=== PATIENT | male | born 1945 | race Two or more races ===

== ENCOUNTER 2019-06-26 09:25 | Inpatient (IN) | payer MEDICARE ==
[~2019-06-26] VITALS: Ht 162.6 cm; Wt 60.5 kg
[~2019-06-26 09:25] MED LIST: CEFT2FRO2 IVPB; FINA5TAB4 PO; TAMS-11 PO
[2019-06-26] MEDS ORDERED: SODIUM CHLORIDE 0.9% 1,000 ML IV ONE ×2 (09:54→14:41)
[2019-06-26] MEDS ORDERED: IBUPROFEN 600 MG TABLET PO ONE (10:00)
[2019-06-26] MEDS ORDERED: SODIUM CHLORIDE 0.9% 1,000ML IVBOLUS ONE ×2 (10:00→14:30)
[2019-06-26] MEDS ORDERED: ONDANSETRON 2MG/ML, 2ML IVPush ONE (10:00)
[2019-06-26] MEDS ORDERED: ACETAMINOPHEN 500 MG TABLET PO ONE (10:00)
--- NOTE | 2019-06-26 10:00 | NUR ---
LATE ENTRY D/T PATIENT CARE: PT PRESENTS TO ED WITH FAMILY, PT IS SLOV[place] SPEAKING BUT REQUESTS SON ([place]) TO TRANSLATE, REFUSES [employer]IST. PT REPORTS CHILLS STARTING YESTERDAY, SOB STARTING THIS AM. PT DENIES PAIN. RECTAL TEMP OBTAINED, 104.6, EDMD SAHM NOTIFIED. COOLING MEASURES IN PLACE, PT PLACED IN GOWN, ALL MONITORS IN PLACE. EKG TAKEN IN TRIAGE. PIV ESTABLISHED, LABS DRAWN, IVF INFUSING RAPIDLY. PT A&OX4, RESPS EVEN AND UNLABORED, SINUS TACH ON DEVELOPMENT LEAD.
[2019-06-26] MEDS ORDERED: IBUPROFEN 600 MG TABLET ONE (10:06)
[2019-06-26] MEDS ORDERED: ACETAMINOPHEN 500 MG TABLET ONE (10:06)
[2019-06-26] MEDS ORDERED: ONDANSETRON 2MG/ML, 2ML ONE (10:06)
[2019-06-26 10:27] LABS: BASOPHILS # (AUTO) 0.01 x10^3/uL (0-0.1); BASOPHILS % (AUTO) 0 % (0-1); EOSINOPHILS # (AUTO) 0.01 x10^3/uL (0-0.4); EOSINOPHILS % (AUTO) 0 % (1-7); LYMPHOCYTES # (AUTO) 0.91 x10^3/uL (1-3.4); LYMPHOCYTES % (AUTO) 8 % (22-44); MD NO; MEAN CORPUSCULAR HEMOGLOBIN 28.7 pg (27.5-34.5); MEAN CORPUSCULAR HGB CONC 33.1 g/dL (33.2-36.2); MEAN CORPUSCULAR VOLUME 86.7 fL (81-97); MEAN PLATELET VOLUME 8.1 fL (7.4-10.4); MONOCYTES # (AUTO) 0.18 x10^3/uL (0.2-0.8); MONOCYTES % (AUTO) 2 % (2-9); NEUTROPHILS # (AUTO) 10.75 x10^3/uL (1.8-6.8); NEUTROPHILS % (AUTO) 91 % (42-75); PLATELET COUNT 219 x10^3/uL (130-400); RED BLOOD COUNT 5.55 x10^6/uL (4.38-5.82); RED CELL DISTRIBUTION WIDTH 14.2 % (9.4-14.8)
[2019-06-26 10:40] LABS: ALANINE AMINOTRANSFERASE 123 U/L (12-78); ALBUMIN 3.3 g/dL (3.4-5.0); ANION GAP 10 mmol/L (5-15); CALCIUM 8.6 mg/dL (8.5-10.1); CHLORIDE 109 mmol/L (98-107); CREATININE 1.35 mg/dL (0.7-1.3)
[2019-06-26 10:42] LABS: ALKALINE PHOSPHATASE 81 U/L (45-117); BILIRUBIN,TOTAL 3.2 mg/dL (0.2-1.0); TOTAL PROTEIN 7.5 g/dL (6.4-8.2)
--- NOTE | 2019-06-26 11:05 | NUR ---
PT MEDICATED PER EMAR, TOLERATED WELL. HR IMPROVING, TEMP RECHECK ORAL IS 99.3. PT ABLE TO CLOSE MOUTH COMPLETELY AROUND TEMP PROBE, TEMP APPEARS ACCURATE. PT IS SINUS TACH RATE 110'S ON CARIAC MONITOR WITH NO ECTOPY NOTED. PT A&O, RESPS EVEN AND UNLABORED. FAMILY AT BEDSIDE. PER MD GARNICA, PT DOES NOT HAVE A UTI. AWAITING US AND RESULTS FOR SOURCE OF INFECTION TO BE DETERMINED.
[2019-06-26] MEDS ORDERED: TAMS-11 PO (11:07)
[2019-06-26] MEDS ORDERED: SPIRIVA RESPIMAT INH (11:07)
[2019-06-26] MEDS ORDERED: ATOR20TA37 PO (11:07)
[2019-06-26] MEDS ORDERED: PROAIR HFA INH (11:07)
[2019-06-26 11:15] LABS: MICROSCOPIC INDICATED
[2019-06-26 11:16] LABS: CULTURE INDICATED? YES
[2019-06-26 11:36] LABS: ACETONE, SERUM Negative (Negative)
--- NOTE | 2019-06-26 12:00 | NUR ---
US IN PROGRESS AT BEDSIDE.
[2019-06-26] MEDS ORDERED: PIPERACILLIN/TAZO/PMX 4.5GM 100 ML IVPB ONE (12:30)
[2019-06-26] MEDS ORDERED: OMNIPAQUE 350 MG/ML, 100ML BOTTLE ONE (12:45)
--- NOTE | 2019-06-26 12:45 | NUR ---
LATE ENTRY D/T PATIENT CARE: REPORT GIVEN TO LESLIE KEY. ZOSYN INFUSING VIA IV PUMP. VSS. FAMILY AT BEDSIDE.
--- NOTE | 2019-06-26 13:19 | NUR ---
TASK RN: PT TO CT
--- NOTE | 2019-06-26 13:20 | NUR ---
THIS RN RETURNED FROM BREAK, PT IN CT.
--- NOTE | 2019-06-26 13:43 | NUR ---
pt back from CT. pt a&o, resps even and unlabored. pt denies pain. sinus tach rate 90s on head of loss prevention with no ectopy noted. awaiting CT results and dispo.
--- NOTE | 2019-06-26 14:17 | NUR ---
MD Torres notified pt's bp 89/56 despite fluid admin as ordered. RN awaiting additional NS orders to meet weight based fluid bolus criteria.
--- NOTE | 2019-06-26 14:24 | NUR ---
rn received order from MD Torres to bolus 500mL NS.
[2019-06-26] MEDS ORDERED: SODIUM CHLORIDE 0.9%, 500ML IVBOLUS ONE (14:30)
[2019-06-26] MEDS ORDERED: SODIUM CHLORIDE FLUSH 10ML SYR IVF PRN (15:00)
--- NOTE | 2019-06-26 15:00 | NUR ---
500ML NS BOLUS INFUSING RAPIDLY. PT A&OX4, RESPS EVEN AND UNLABORED, DENIES PAIN. FAMILY AT BEDSIDE. PT AWAITING ERCP AND ADMIT BED ASSIGNMENT AND TRANSPORT. REPORT GIVEN TO LESLIE KEY WHO IS TO ASSUME CARE.
--- NOTE | 2019-06-26 15:49 | NUR ---
Pt resting in room,
[2019-06-26] MEDS ORDERED: MORPHINE SULFATE 4 MG/ML, 1ML IVPush PRN (16:30)
[2019-06-26] MEDS ORDERED: ACETAMINOPHEN 325 MG TABLET PO PRN (16:30)
[2019-06-26] MEDS ORDERED: DILTIAZEM 5 MG/ML, 5ML IVPush PRN (16:30)
[2019-06-26] MEDS ORDERED: SPIRIVA RESPIMAT 2.5 MCG INH PRN (16:30)
[2019-06-26] MEDS ORDERED: ALBUTEROL/IPRATROPIUM 2.5MG/0.5MG, 3 ML HHN SCH (16:30)
[2019-06-26] MEDS ORDERED: OXYcodone IR 5MG TABLET PO PRN (16:30)
[2019-06-26] MEDS ORDERED: ONDANSETRON 2MG/ML, 2ML IVPush PRN (16:30)
[2019-06-26] MEDS ORDERED: ALBUTEROL SULFATE 2.5MG/0.5ML NPPB PRN (17:00)
[2019-06-26 17:03] LABS: FREE T4 (FREE THYROXINE) 1.39 ng/dL (0.76-1.46)
[2019-06-26 17:09] VITALS: BP 92/60
[2019-06-26] MEDS: POTASSIUM CHLORIDE 20 MEQ in LACTATED RINGERS 1,000 ML IV SCH (17:49)
[2019-06-26] MEDS: ERTAPENEM 1 GM in SODIUM CHLORIDE 0.9% 50 ML IV SCH (17:57)
[2019-06-26 20:31] VITALS: BP 97/53
[2019-06-26] MEDS: TAMSULOSIN 0.4 MG CAP.ER.24H PO SCH (20:39)
[2019-06-26] MEDS: BUDESONIDE 0.5 MG/2 ML INHA INH SCH (21:00)
[2019-06-26] MEDS: ALBUTEROL/IPRATROPIUM 2.5MG/0.5MG, 3 ML NPPB SCH (21:00)
[2019-06-26 22:33] LABS: CREATININE,URINE RANDOM 55.8 mg/dL
[2019-06-27 01:08] VITALS: BP 114/68
[2019-06-27] MEDS: ALBUTEROL/IPRATROPIUM 2.5MG/0.5MG, 3 ML NPPB SCH ×4 (03:00→19:02)
[2019-06-27] MEDS: POTASSIUM CHLORIDE 20 MEQ in LACTATED RINGERS 1,000 ML IV SCH ×2 (04:44→16:26)
[2019-06-27 05:12] LABS: BASOPHILS # (AUTO) 0.01 x10^3/uL (0-0.1); BASOPHILS % (AUTO) 0 % (0-1); EOSINOPHILS # (AUTO) 0.04 x10^3/uL (0-0.4); EOSINOPHILS % (AUTO) 1 % (1-7); LYMPHOCYTES # (AUTO) 0.59 x10^3/uL (1-3.4); LYMPHOCYTES % (AUTO) 9 % (22-44); MD NO; MEAN CORPUSCULAR HEMOGLOBIN 28.5 pg (27.5-34.5); MEAN CORPUSCULAR HGB CONC 32.6 g/dL (33.2-36.2); MEAN CORPUSCULAR VOLUME 87.3 fL (81-97); MEAN PLATELET VOLUME 8.3 fL (7.4-10.4); MONOCYTES # (AUTO) 0.61 x10^3/uL (0.2-0.8); MONOCYTES % (AUTO) 10 % (2-9); NEUTROPHILS # (AUTO) 5.16 x10^3/uL (1.8-6.8); NEUTROPHILS % (AUTO) 81 % (42-75); PLATELET COUNT 169 x10^3/uL (130-400); RED BLOOD COUNT 5.31 x10^6/uL (4.38-5.82); RED CELL DISTRIBUTION WIDTH 14.7 % (9.4-14.8)
[2019-06-27 05:13] LABS: CALCIUM 8.2 mg/dL (8.5-10.1); CHLORIDE 113 mmol/L (98-107)
[2019-06-27 05:19] LABS: ALANINE AMINOTRANSFERASE 95 U/L (12-78); ALBUMIN 2.7 g/dL (3.4-5.0); ALKALINE PHOSPHATASE 73 U/L (45-117); ANION GAP 8 mmol/L (5-15); BILIRUBIN,TOTAL 6.8 mg/dL (0.2-1.0); CREATININE 1.17 mg/dL (0.7-1.3); TOTAL PROTEIN 6.3 g/dL (6.4-8.2)
[2019-06-27] MEDS: BUDESONIDE 0.5 MG/2 ML INHA INH SCH ×2 (06:58→19:02)
[2019-06-27 07:25] VITALS: BP 107/59
[2019-06-27 08:11] VITALS: BP 100/51
[2019-06-27] MEDS: FINASTERIDE 5 MG TABLET PO SCH (08:14)
[2019-06-27] MEDS: PANTOPRAZOLE 40 MG IV IVPush SCH (08:14)
[2019-06-27] MEDS ORDERED: FENTANYL PF 250 MCG/5ML ONE (11:56)
[2019-06-27] MEDS ORDERED: MIDAZOLAM 1 MG/ML, 2ML ONE (11:56)
[2019-06-27] MEDS ORDERED: ONDANSETRON 2MG/ML, 2ML ONE (12:04)
[2019-06-27] MEDS ORDERED: PHENYLEPHRINE 10 MG/ML ONE (12:04)
[2019-06-27] MEDS ORDERED: PROPOFOL 10 MG/ML, 20ML ONE (12:04)
[2019-06-27] MEDS ORDERED: ROCURONIUM 10 MG/ML,10ML ONE (12:04)
[2019-06-27] MEDS ORDERED: SUGAMMADEX 200 MG/2 ML IVPush ONE (12:25)
[2019-06-27] MEDS ORDERED: FENTANYL PF 100 MCG/2ML IV PRN (12:30)
[2019-06-27] MEDS ORDERED: HALOPERIDOL 5 MG/ML IV PRN (12:30)
[2019-06-27] MEDS ORDERED: OXYcodone 5 MG/5 ML ORAL.SOL UDC PO PRN (12:30)
[2019-06-27] MEDS ORDERED: HYDROmorphone 2 MG/ML, 1ML IVPush PRN (12:30)
[2019-06-27] MEDS ORDERED: LABETALOL 5MG/ML, 20ML IV PRN (12:30)
[2019-06-27] MEDS ORDERED: MEPERIDINE/PF 25MG/ML,1ML IVPush PRN (12:30)
[2019-06-27] MEDS ORDERED: OMNIPAQUE 350 MG/ML, 50 ML BOTTLE ONE (12:41)
[2019-06-27] MEDS ORDERED: ALBUTEROL/IPRATROPIUM 2.5MG/0.5MG, 3 ML ONE (13:03)
[2019-06-27] MEDS ORDERED: ALBUTEROL/IPRATROPIUM 2.5MG/0.5MG, 3 ML NEB ONE (13:30)
[2019-06-27 13:59] VITALS: BP 109/69
[2019-06-27] MEDS: ERTAPENEM 1 GM in SODIUM CHLORIDE 0.9% 50 ML IV SCH (17:29)
[2019-06-27] MEDS: TAMSULOSIN 0.4 MG CAP.ER.24H PO SCH (20:08)
[2019-06-27 20:42] VITALS: BP 115/70
[2019-06-28 02:16] VITALS: BP 117/77
[2019-06-28] MEDS: ALBUTEROL/IPRATROPIUM 2.5MG/0.5MG, 3 ML NPPB SCH ×4 (03:50→18:44)
[2019-06-28] MEDS: POTASSIUM CHLORIDE 20 MEQ in LACTATED RINGERS 1,000 ML IV SCH (03:55)
[2019-06-28 05:04] LABS: ALANINE AMINOTRANSFERASE 82 U/L (12-78); ALBUMIN 2.5 g/dL (3.4-5.0); ANION GAP 4 mmol/L (5-15); CHLORIDE 112 mmol/L (98-107); CREATININE 1.02 mg/dL (0.7-1.3)
[2019-06-28 05:06] LABS: ALKALINE PHOSPHATASE 96 U/L (45-117); BILIRUBIN,TOTAL 4.1 mg/dL (0.2-1.0); TOTAL PROTEIN 6.1 g/dL (6.4-8.2)
[2019-06-28 07:56] VITALS: BP 117/76
[2019-06-28] MEDS: BUDESONIDE 0.5 MG/2 ML INHA INH SCH ×2 (08:00→18:44)
[2019-06-28] MEDS: PANTOPRAZOLE 40 MG IV IVPush SCH (08:13)
[2019-06-28] MEDS: FINASTERIDE 5 MG TABLET PO SCH (08:13)
[2019-06-28 13:13] VITALS: BP 137/93
[2019-06-28] MEDS: ERTAPENEM 1 GM in SODIUM CHLORIDE 0.9% 50 ML IV SCH (18:09)
[2019-06-28] MEDS: TAMSULOSIN 0.4 MG CAP.ER.24H PO SCH (19:52)
[2019-06-28 20:57] VITALS: BP 121/72
[2019-06-29 01:23] VITALS: BP 105/70
[2019-06-29] MEDS: ALBUTEROL/IPRATROPIUM 2.5MG/0.5MG, 3 ML NPPB SCH ×4 (03:00→20:29)
[2019-06-29] MEDS: PANTOPROZOLE 40MG TABLET PO SCH (06:01)
[2019-06-29 06:55] VITALS: BP 94/63
[2019-06-29 07:56] VITALS: BP 123/76
[2019-06-29 08:24] LABS: ALANINE AMINOTRANSFERASE 86 U/L (12-78); ALBUMIN 2.4 g/dL (3.4-5.0); ANION GAP 6 mmol/L (5-15); CALCIUM 8.2 mg/dL (8.5-10.1); CHLORIDE 111 mmol/L (98-107); CREATININE 0.85 mg/dL (0.7-1.3)
[2019-06-29 08:26] LABS: ALKALINE PHOSPHATASE 133 U/L (45-117); BILIRUBIN,TOTAL 1.9 mg/dL (0.2-1.0); TOTAL PROTEIN 6.5 g/dL (6.4-8.2)
[2019-06-29] MEDS: FINASTERIDE 5 MG TABLET PO SCH (08:46)
[2019-06-29] MEDS: BUDESONIDE 0.5 MG/2 ML INHA INH SCH ×2 (09:00→20:29)
[2019-06-29 15:08] VITALS: BP 118/74
[2019-06-29] MEDS ORDERED: SENNA/DOCUSATE TABLET PO PRN (18:00)
[2019-06-29] MEDS ORDERED: POLYETHYLENE GLYCOL 17 GM PACKET NG PRN (18:00)
[2019-06-29] MEDS: ERTAPENEM 1 GM in SODIUM CHLORIDE 0.9% 50 ML IV SCH (18:19)
[2019-06-29 20:25] VITALS: BP 128/80
[2019-06-29] MEDS: TAMSULOSIN 0.4 MG CAP.ER.24H PO SCH (20:47)
[2019-06-30 00:54] VITALS: BP 111/71
[2019-06-30] MEDS: ALBUTEROL/IPRATROPIUM 2.5MG/0.5MG, 3 ML NPPB SCH ×4 (03:00→21:50)
[2019-06-30] MEDS: PANTOPROZOLE 40MG TABLET PO SCH (05:44)
[2019-06-30 07:53] VITALS: BP 121/77
[2019-06-30] MEDS: BUDESONIDE 0.5 MG/2 ML INHA INH SCH ×2 (08:45→22:19)
[2019-06-30] MEDS: FINASTERIDE 5 MG TABLET PO SCH (09:43)
[2019-06-30 14:07] VITALS: BP 116/75
[2019-06-30] MEDS: ERTAPENEM 1 GM in SODIUM CHLORIDE 0.9% 50 ML IV SCH (17:59)
[2019-06-30 19:37] VITALS: BP 126/76
[2019-06-30] MEDS: TAMSULOSIN 0.4 MG CAP.ER.24H PO SCH (22:02)
[2019-07-01 00:31] VITALS: BP 122/71
[2019-07-01] MEDS: ALBUTEROL/IPRATROPIUM 2.5MG/0.5MG, 3 ML NPPB SCH ×4 (02:29→20:00)
[2019-07-01] MEDS: PANTOPROZOLE 40MG TABLET PO SCH (04:48)
[2019-07-01 06:15] LABS: BASOPHILS # (AUTO) 0.06 x10^3/uL (0-0.1); BASOPHILS % (AUTO) 1 % (0-1); EOSINOPHILS # (AUTO) 0.06 x10^3/uL (0-0.4); EOSINOPHILS % (AUTO) 1 % (1-7); LYMPHOCYTES # (AUTO) 1.45 x10^3/uL (1-3.4); LYMPHOCYTES % (AUTO) 15 % (22-44); MD NO; MEAN CORPUSCULAR HEMOGLOBIN 28.3 pg (27.5-34.5); MEAN CORPUSCULAR HGB CONC 32.6 g/dL (33.2-36.2); MEAN CORPUSCULAR VOLUME 86.8 fL (81-97); MEAN PLATELET VOLUME 7.9 fL (7.4-10.4); MONOCYTES # (AUTO) 0.78 x10^3/uL (0.2-0.8); MONOCYTES % (AUTO) 8 % (2-9); NEUTROPHILS # (AUTO) 7.53 x10^3/uL (1.8-6.8); NEUTROPHILS % (AUTO) 76 % (42-75); PLATELET COUNT 276 x10^3/uL (130-400); RED BLOOD COUNT 4.91 x10^6/uL (4.38-5.82); RED CELL DISTRIBUTION WIDTH 15.3 % (9.4-14.8)
[2019-07-01 06:19] LABS: CHLORIDE 108 mmol/L (98-107)
[2019-07-01 06:28] LABS: ALANINE AMINOTRANSFERASE 74 U/L (12-78); ALBUMIN 2.5 g/dL (3.4-5.0); ALKALINE PHOSPHATASE 101 U/L (45-117); ANION GAP 8 mmol/L (5-15); BILIRUBIN,TOTAL 1.3 mg/dL (0.2-1.0); CALCIUM 8.2 mg/dL (8.5-10.1); TOTAL PROTEIN 6.5 g/dL (6.4-8.2)
[2019-07-01] MEDS: FINASTERIDE 5 MG TABLET PO SCH (08:13)
[2019-07-01 08:15] VITALS: BP 110/65
[2019-07-01] MEDS: BUDESONIDE 0.5 MG/2 ML INHA INH SCH ×2 (10:50→20:00)
[2019-07-01 13:59] VITALS: BP 129/79
[2019-07-01] MEDS ORDERED: PANT40TA5 PO (15:29)
[2019-07-01] MEDS ORDERED: AMOX1TAB64 PO (15:29)
[2019-07-01] MEDS ORDERED: PRED10TA PO (15:31)
[2019-07-01] MEDS: ERTAPENEM 1 GM in SODIUM CHLORIDE 0.9% 50 ML IV SCH (18:29)
[2019-07-01 19:42] VITALS: BP 111/69
[2019-07-01] MEDS: TAMSULOSIN 0.4 MG CAP.ER.24H PO SCH (20:34)
[2019-07-02 01:10] VITALS: BP 120/76
[2019-07-02] MEDS: ALBUTEROL/IPRATROPIUM 2.5MG/0.5MG, 3 ML NPPB SCH ×3 (03:00→10:59)
[2019-07-02 07:27] VITALS: BP 120/75
[2019-07-02] MEDS ORDERED: AMOXICILLIN/CLAV 875-125MG TABLET PO SCH (09:00)
[2019-07-02] MEDS: BUDESONIDE 0.5 MG/2 ML INHA INH SCH (09:00)
[2019-07-02] MEDS: FINASTERIDE 5 MG TABLET PO SCH (09:29)
[2019-07-02] MEDS: PANTOPROZOLE 40MG TABLET PO SCH (09:30)
== END 2019-07-02 12:00 | disposition home or self-care (01) | DRG 871 ==
LOC: ED 11:14 → EDIP 14:41 → 4WST 16:53
PROVIDERS: ADMIT Internal Medicine; ATTEND Internal Medicine
PROC: 0F798DZ Dilation of Common Bile Duct with Intraluminal Device, Via Natural or Artificial Opening Endoscopic (ICD-10-PCS; 2019-06-27)
PROC: 0FB98ZX Excision of Common Bile Duct, Via Natural or Artificial Opening Endoscopic, Diagnostic (ICD-10-PCS; 2019-06-27)
PROC: 0FC98ZZ Extirpation of Matter from Common Bile Duct, Via Natural or Artificial Opening Endoscopic (ICD-10-PCS; 2019-06-27)
PROC: BF111ZZ Fluoroscopy of Biliary and Pancreatic Ducts using Low Osmolar Contrast (ICD-10-PCS; 2019-06-27)
PROC: 0FBC8ZX Excision of Ampulla of Vater, Via Natural or Artificial Opening Endoscopic, Diagnostic (ICD-10-PCS; principal; 2019-06-27 13:30)
DX: A41.51 Sepsis due to Escherichia coli [E. coli] (principal); N17.0 Acute kidney failure with tubular necrosis; N39.0 Urinary tract infection, site not specified; I47.1 Supraventricular tachycardia; K80.31 Calculus of bile duct with cholangitis, unspecified, with obstruction; K86.9 Disease of pancreas, unspecified; E78.00 Pure hypercholesterolemia, unspecified; J43.9 Emphysema, unspecified; K72.90 Hepatic failure, unspecified without coma; G47.33 Obstructive sleep apnea (adult) (pediatric); N40.0 Benign prostatic hyperplasia without lower urinary tract symptoms; R73.9 Hyperglycemia, unspecified; Z87.440 Personal history of urinary (tract) infections; Z79.899 Other long term (current) drug therapy
CPT/HCPCS: 36415; 71045; 74177; 74328; 76700; 80053; 81001; 82010; 82436; 82570; 82800; 82962; 83036; 83605; 83735; 84100; 84133; 84145; 84300; 84439; 84443; 85025; 87040; 87077; 87086; 87186; 87205; 88305; 93005; 94640; 96361; 96374; G0103; G0378; J1335; J2250; J2405; J2543; J2704; J3010; J3480; J7620; J7626; Q9967; C1769; C1894; C2625; C9113; J2370; J7030; J7040; J7120; J7512